=== PATIENT | female | born 1980 | race American Indian/Alaskan Native ===

== ENCOUNTER 2018-03-09 08:13 | Emergency (ER) | payer BC ==
--- NOTE | 2018-03-09 11:04 | Emergency Department Report ---
Minor Respiratory - HPI Chief Complaint: Upper Respiratory Infection Stated Complaint: SORE THROAT/BODY IN PAIN Duration: one week Pain Location: Throat, Nose, Chest (under left breast) Severity: moderate Minor Respiratory: Yes Rhinorrhea, Yes Sore Throat, Yes Able to Tolerate Fluids , Yes Cough, Yes Sick Contacts (work), Yes Chest Pain (under left breast), Yes Shortness of Breath, Yes Fever, No Ear Pain, No Hemoptysis Other History: This is a 38-year-old -[place] female presents with sore throat, congestion, and pain under left breast with cough for 1 week. Patient reports swelling 5 days and loss of voice. She is able to tolerate liquids and solids very painful on descent. She reports feeling achy body aches all over. She is currently taking [id number] cold and flu medication with no improvement of symptoms. He is now also complaining of chills and fever. Patient states she felt like she was ran over by a car. Patient denies nausea or vomiting, abdominal pain, ordiarrhea. ED Review of Systems ROS: Stated complaint: SORE THROAT/BODY IN PAIN Other details as noted in HPI Constitutional: chills, fever ENT: throat pain, congestion. denies: ear pain, dental pain, hearing loss, epistaxis Respiratory: cough, SOB with exertion. denies: shortness of breath, wheezing Cardiovascular: chest pain (Sharp pain under left breast with cough). denies: palpitations Gastrointestinal: denies: abdominal pain, nausea, diarrhea Skin: denies: rash, lesions Neurological: denies: headache, weakness, paresthesias Psychiatric: denies: anxiety, depression ED Past Medical Hx - Past Medical History Previous Medical History?: Yes Additional medical history: WPW - Surgical History Past Surgical History?: Yes Additional Surgical History: fibroids removed 2016 - Social History Smoking Status: Never Smoker Substance Use Type: None - Medications Home Medications: Home Medications Medication Instructions Recorded Confirmed Last Taken Type Fluticasone [Flonase] 1 spray NS QDAY #1 bottle 03/09/18 Unknown Rx Penicillin V Potassium 500 mg PO BID #20 tablet 03/09/18 Unknown Rx Prednisone [predniSONE 10 mg 10 mg PO .TAPER #1 tab.ds.pk 03/09/18 Unknown Rx (6-Day Pack, 21 Tabs)] guaiFENesin/DEXTROMETHORPHAN 1 each PO BID #10 tab.er.12h 03/09/18 Unknown Rx [Mucinex Dm ER 1,200-60 mg Tab] Minor Respiratory Exam - Exam General: Vital signs noted. No distress. Alert and acting appropriately. HEENT: Yes Pharyngeal Erythema (posterior pharynx, uvula midline), Yes Moist Mucous Membranes, Yes Rhinorrhea (turbinates mildly congested with clear discharge), No Pharyngeal Exudates, No Conjuctival Injection, No Frontal Tenderness, No Maxillary Tenderness Ear: Neither TM Bulge, Neither TM Erythema, Neither EAC Pain, Neither EAC Discharge Neck: Yes Supple, No Adenopathy Lungs: Yes Wheezes (expiratory wheezes throughout), No Good Air Exchange, No Ronchi, No Stridor, No Cough, No Labored Respirations, No Retractions, No Use of Accessory Muscles, No Other Abnormal Lung Sounds Heart: Yes Regular, No Murmur Abdomen: Yes Normal Bowel Sounds, No Tenderness, No Peritoneal Signs Skin: No Rash, No Edema Neurologic: Alert and oriented, no deficits. Musculoskeletal: Unremarkable. ED Course Vital Signs 03/09/18 08:19 Temperature 99.0 F Pulse Rate 97 H Respiratory 18 Rate Blood Pressure 160/88 O2 Sat by Pulse 100 Oximetry ED Medical Decision Making - Lab Data Lab Results 03/09/18 Range/Units Unknown Influenza A (Rapid) Negative (Negative) Influenza B (Rapid) Negative (Negative) Group A Strep Rapid Negative (Negative) - Radiology Data Radiology results: report reviewed Chest X-ray: no acute cardiopulmonary findings. - Medical Decision Making Patient examined by me and stable. No distress noted. Vitals stable. On examination of expiratory wheezes. No past medical history as. Given duoneb treatment and dexamethasone once while in ER. Chest xray has been obtained and dictated by radiologist. Report reviewed by me with no acute cardiopulmonary findings. Labs obtained Rapid flu and strep. All labs negative. Patient notified of x-ray results with no questions. Reviewed results with patient. Physical finances susceptible laryngitis and bronchitis. Start penicillin V, prednisone taper, Mucinex DM, and Flonase. Discharged home stable. Encouraged to do supportive care for URI. Follow up with Primary Care Provider in 2-3 days. Critical care attestation.: If time is entered above; I have spent that time in minutes in the direct care of this critically ill patient, excluding procedure time. ED Disposition Clinical Impression: Laryngitis, Wheezes, Bronchitis Disposition: DC-01 TO HOME OR SELFCARE Is pt being admited?: No Does the pt Need Aspirin: No Condition: Stable Instructions: Laryngitis (ED), Chronic Bronchitis (ED) Additional Instructions: Increase fluid intake and rest. Wash hands frequently. Continue taking Tylenol or ibuprofen to control fever. F/U with Primary Care Provider. Return to ER if fever, SOB, or difficulty breathing after 48 hours of supportive care. Prescriptions: Fluticasone [Flonase] 1 spray NS QDAY #1 bottle guaiFENesin/DEXTROMETHORPHAN [Mucinex Dm ER 1,200-60 mg Tab] 1 each PO BID #10 tab.er.12h Penicillin V Potassium 500 mg PO BID #20 tablet Prednisone [predniSONE 10 mg (6-Day Pack, 21 Tabs)] 10 mg PO .TAPER #1 tab.ds.pk Referrals: [facility] [Outside] - 3-5 Days [facility] [Outside] - 3-5 Days [facility] [Outside] - 3-5 Days Forms: Work/School Release Form(ED) Time of Disposition: 13:51 Print Language: PASHTO
--- NOTE | 2018-03-09 12:22 | XRay Report ---
FINAL REPORT EXAM: XR CHEST ROUTINE 2V HISTORY: cough, fever, left sided chest pain TECHNIQUE: Frontal chest x-ray. PRIORS: None currently available. FINDINGS: Cardiac silhouette is within normal limits. There is no effusion. There is no pneumothorax. There is no consolidation. There are no suspicious osseous lesions. IMPRESSION: No acute cardiopulmonary findings.
[2018-03-09] MEDS ORDERED: DECADRON IM ONE (12:54)
[2018-03-09] MEDS ORDERED: DUONEB *Not for PRN Use IH ONE (12:55)
[2018-03-09 14:03] VITALS: BP 143/82
== END 2018-03-09 14:08 | disposition home or self-care (01) ==
LOC: ED 08:13
DX: J40 Bronchitis, not specified as acute or chronic (principal); J04.0 Acute laryngitis
CPT/HCPCS: 71046; 87116; 87400; 87430; 94640; 96372; 99284; J1100